=== PATIENT | female | born 1995 | race Hispanic/Latino ===

== ENCOUNTER 2020-06-22 07:07 | Inpatient (IN) | payer MEDICAID ==
[~2020-06-22] VITALS: Ht 149.9 cm; Wt 81.6 kg
[2020-06-22] MEDS ORDERED: LACTATED RINGERS 500 ML 500 ML IV PRN (08:00)
[2020-06-22] MEDS ORDERED: EPHEDRINE SULFATE 50 MG/ML AMPULE IVP PRN (08:00)
[2020-06-22] MEDS ORDERED: OXYTOCIN-LR 20 UNITS/1000 ML 1,000 ML IV SCH (08:00)
[2020-06-22] MEDS ORDERED: NALOXONE HCL 0.4 MG/1 ML ML IV PRN (08:00)
[2020-06-22 08:12] LABS: HEMATOCRIT 33.4 % (36-48); MEAN CORPUSCULAR HEMOGLOBIN 24.2 pg (27.0-33.0); MEAN CORPUSCULAR HGB CONC 31.4 g/dL (32.0-36.0); MEAN CORPUSCULAR VOLUME 77.1 fL (79-99); NUCLEATED RED BLOOD CELLS 0.2 % (0.0-0.19); PLATELET COUNT (AUTO) 227 K/uL (130-400); RED BLOOD CELL COUNT(AUTO) 4.33 MIL/uL (4.00-5.50); RED CELL DISTRIBUTION WIDTH 14.2 % (11.0-15.5)
[2020-06-22] MEDS ORDERED: MEPERIDINE-PF 50 MG/ML SYG ONE (11:25)
[2020-06-22] MEDS ORDERED: MEPERIDINE-PF 50 MG/ML SYG IVP PRN (11:30)
[2020-06-22] MEDS ORDERED: PROMETHAZINE HCL 25 MG/ML 1ML AMPULE IM PRN (11:30)
[2020-06-22] MEDS: OXYTOCIN-LR 20 UNITS/1000 ML 1,000 ML IV SCH (12:30)
[2020-06-22 13:36] LABS: APPEARANCE,URINE Clear (CLEAR); BILIRUBIN,URINE Negative (NEGATIVE); COLOR,URINE Yellow (YELLOW); GLUCOSE, URINE (UA) Negative (NEGATIVE); KETONES,URINE 15 mg/dL (NEGATIVE); LEUKOCYTE ESTERASE ,URINE Small (NEGATIVE); NITRATE,URINE Negative (NEGATIVE); OCCULT BLOOD,URINE Moderate (NEGATIVE); PROTEIN,URINE Trace mg/dL (NEGATIVE); UROBILINOGEN,URINE 0.2 mg/dL (0.2-1.0)
[2020-06-22 13:41] LABS: AMPHET/METH SCREEN,URINE NEGATIVE (NEGATIVE); BARBITURATE SCREEN, URINE NEGATIVE (NEGATIVE); BENZODIAZEPINES SCREEN,URINE NEGATIVE (NEGATIVE); CANNABINOID SCREEN,URINE NEGATIVE (NEGATIVE); COCAINE SCREEN,URINE NEGATIVE (NEGATIVE); OPIATE SCREEN,URINE NEGATIVE (NEGATIVE); PHENCYCLIDINE SCREEN,URINE NEGATIVE (NEGATIVE)
[2020-06-22 13:47] LABS: BACTERIA,URINE Few /HPF (None Seen); RBC,URINE 26-50 /HPF (0-1); WBC,URINE 0-1 /HPF (0-1)
[2020-06-22] MEDS ORDERED: AMPICILLIN 2GM+NS 100ML 100 ML IV SCH (14:45)
[2020-06-22] MEDS ORDERED: AMPICILLIN 2GM+NS 100ML 100 ML IV ONE (15:21)
[2020-06-22] MEDS: LACTATED RINGERS 1000ML 1,000 ML IV PRN (16:14)
[2020-06-22] MEDS: AMPICILLIN 1GM+NS 50ML 50 ML IV SCH ×2 (19:33→23:53)
[2020-06-22] MEDS ORDERED: FENTANYL CITRATE PF 50 MCG/1 ML 2ML VIAL ONE (21:42)
[2020-06-22] MEDS ORDERED: LIDOCAINE 2%-EPI 1:200,000 20 ML VIAL IJ ONE (22:18)
[2020-06-23] MEDS: AMPICILLIN 1GM+NS 50ML 50 ML IV SCH ×3 (04:05→22:35)
[2020-06-23] MEDS: LACTATED RINGERS 1000ML 1,000 ML IV PRN (04:11)
[2020-06-23 07:16] LABS: HEPATITIS Bs ANTIGEN SCREEN P Negative (Negative)
[2020-06-23] MEDS: OXYTOCIN-LR 20 UNITS/1000 ML 1,000 ML IV SCH (08:00)
[2020-06-23] MEDS ORDERED: OXYTOCIN-LR 20 UNITS/1000 ML 1,000 ML IV SCH (11:30)
[2020-06-23] MEDS ORDERED: DIPH,PERTUSS(ACELL),TET VAC/PF 0.5 ML VIAL IM PRN (11:30)
[2020-06-23] MEDS ORDERED: BENZOCAINE/LANOLIN/ALOE VERA 60 ML AEROSOL TP PRN (11:30)
[2020-06-23] MEDS ORDERED: WITCH HAZEL 1 PAD TP PRN (11:30)
[2020-06-23] MEDS ORDERED: ACETAMINOPHEN 325 MG TAB PO PRN (11:30)
[2020-06-23] MEDS ORDERED: MEASLES/MUMPS/RUBELLA VACCINE, LIVE 0.5 ML/VIAL SQ PRN (11:30)
[2020-06-23] MEDS ORDERED: LANOLIN 30GM OINTMENT TP PRN (11:30)
[2020-06-23 13:27] VITALS: BP 126/72
[2020-06-23] MEDS ORDERED: PREN-154 PO (13:38)
[2020-06-23] MEDS: IBUPROFEN 600 MG TABLET PO PRN ×2 (13:43→21:03)
[2020-06-23 16:44] VITALS: BP 135/69
[2020-06-23 19:10] VITALS: BP 129/80
[2020-06-23] MEDS: DOCUSATE SODIUM 100 MG CAP PO SCH (21:02)
[2020-06-23 23:23] VITALS: BP 122/66
[2020-06-24] VITALS (7 sets, daily range): BP systolic 115–137; BP diastolic 57–77
[2020-06-24] MEDS: AMPICILLIN 1GM+NS 50ML 50 ML IV SCH ×2 (00:37→00:38)
[2020-06-24] MEDS: DOCUSATE SODIUM 100 MG CAP PO SCH ×2 (09:09→22:00)
[2020-06-24] MEDS: IBUPROFEN 600 MG TABLET PO PRN ×3 (09:09→22:01)
[2020-06-25] MEDS: ACETAMINOPHEN WITH CODEINE 1 TAB TAB PO PRN ×2 (00:53→08:49)
[2020-06-25 03:38] VITALS: BP 127/71
[2020-06-25] MEDS: IBUPROFEN 600 MG TABLET PO PRN (04:05)
[2020-06-25 07:13] VITALS: BP 116/66
[2020-06-25] MEDS: DOCUSATE SODIUM 100 MG CAP PO SCH (08:47)
[2020-06-25 12:16] VITALS: BP 133/68
== END 2020-06-25 12:50 | disposition home or self-care (01) | DRG 560 ==
LOC: EDH 07:07 → OBSVTOIN 07:08 → LDH 07:08 → WSH 06-23 13:30
PROVIDERS: ADMIT Specialist; ATTEND Specialist
PROC: 10E0XZZ Delivery of Products of Conception, External Approach (ICD-10-PCS; principal; 2020-06-23)
PROC: 3E0234Z Introduction of Serum, Toxoid and Vaccine into Muscle, Percutaneous Approach (ICD-10-PCS; 2020-06-23)
PROC: 0W8NXZZ Division of Female Perineum, External Approach (ICD-10-PCS; 2020-06-23)
PROC: 3E0134Z Introduction of Serum, Toxoid and Vaccine into Subcutaneous Tissue, Percutaneous Approach (ICD-10-PCS; 2020-06-23)
PROC: 3E0R3BZ Introduction of Anesthetic Agent into Spinal Canal, Percutaneous Approach (ICD-10-PCS; 2020-06-23)
PROC: 00HU33Z Insertion of Infusion Device into Spinal Canal, Percutaneous Approach (ICD-10-PCS; 2020-06-23)
DX: O42.913 Preterm premature rupture of membranes, unspecified as to length of time between rupture and onset of labor, third trimester (principal); O66.0 Obstructed labor due to shoulder dystocia; O69.1XX0 Labor and delivery complicated by cord around neck, with compression, not applicable or unspecified; O23.43 Unspecified infection of urinary tract in pregnancy, third trimester; Z3A.36 36 weeks gestation of pregnancy; Z37.0 Single live birth; Z23 Encounter for immunization
CPT/HCPCS: 36415; 80305; 81001; 85027; 86592; 86850; 86900; 86901; 87340; A4314; G0378; J0290; J2175; J2550; J2590; J3010; J3490; J7120